=== PATIENT | female | born 1985 | race Caucasian/White ===

== ENCOUNTER → 2016-06-12 | Outpatient (CLI) | payer BC ==
[~2016-06-12] MED LIST: BIAXIN500 MG PO; CLARITIN10 MG PO; COLACE100 MG PO; FEOSOL,FER300 MG/5 M PO; MOTRIN800 MG PO; PERCOCET 325 MG1 TA2 PO; PRENATAL1 TA5 PO
== END | disposition home or self-care (01) ==
LOC: LAB 02:08
DX: O99.810 Abnormal glucose complicating pregnancy (principal); Z3A.00 Weeks of gestation of pregnancy not specified

== ENCOUNTER → 2016-08-20 | Outpatient (CLI) | payer BC | END | disposition home or self-care (01) | LOC: US 00:52 | DX: O26.893 Other specified pregnancy related conditions, third trimester (principal); Z3A.37 37 weeks gestation of pregnancy ==

== ENCOUNTER 2017-05-19 22:34 | Emergency (ER) | payer OTHER ==
[~2017-05-19] VITALS: Ht 170.1 cm; Wt 122.5 kg
--- NOTE | ~2017-05-19 | EKG ---
[place], [place] ELECTROCARDIOGRAM REPORT NAME: SLOAN MENDOZA UNIT #: [id number] ROOM: DOCTOR: GAYATRI ISAAC,MEDINA BIRTHDATE: [birth year] DOS: 05/19/2017 TIME: 2311 hours. IMPRESSION: 1. Sinus rhythm, sinus tachycardia. 2. Nonspecific ST-T changes. 3. Normal QT interval. MEDINA MENDIETA MD CM:EKGRPT:ELECTROCARDIOGRAM REPORT 1400 [id number] MEDINA MENDIETA MD
[2017-05-19 22:40] VITALS: BP 135/51
[2017-05-19 23:07] LABS: BILIRUBIN 1+ (NEGATIVE); BLOOD 2+ (NEGATIVE); CLARITY SL CLOUDY (CLEAR); COLOR YELLOW (YELLOW); GLUCOSE NEGATIVE (NEGATIVE); KETONE TRACE (NEGATIVE); LEUKO ESTERASE NEGATIVE (NEGATIVE); NITRITE NEGATIVE (NEGATIVE); PH 5.5 (5.0-9.0); SPECIFIC GRAVITY 1.025 (1.005-1.030)
[2017-05-19 23:12] LABS: BACTERIA 1+; EPITHELIAL CELLS 45-50
[2017-05-19 23:13] LABS: WBC 0-2 wbc/hpf (0-5)
[2017-05-19 23:22] LABS: BASO # 0.1 10*3/uL (0.0-0.1); BASO % 0.4 % (0.0-1.0); EOS # 0.2 10*3/uL (0.0-0.4); EOS % 1.7 % (1.0-4.0); HEMATOCRIT 39.9 % (37.0-47.0); HEMOGLOBIN 12.6 g/dl (12.0-16.0); LYMPH # 2.3 10*3/uL (1.3-4.4); LYMPH % 16.5 % (27.0-41.0); MEAN CELL VOLUME 82.3 fl (81.0-99.0); MEAN CORPUSCULAR HGB CONC 31.6 g/dl (33.0-37.0); MEAN PLATELET VOLUME 10.2 fl (9.6-12.3); MONO # 0.7 10*3/uL (0.1-1.0); NEUT # 10.3 10*3/uL (2.3-7.9); NEUT % 75.4 % (47.0-73.0); PLATELET COUNT AUTOMATED 281 10*3/uL (130-400); RED BLOOD COUNT 4.85 10*6/uL (4.10-5.10); RED CELL DISTRI WIDTH 15.5 % (0-14.5); WHITE BLOOD COUNT 13.7 10*3/uL (4.8-10.8)
[2017-05-19 23:23] LABS: ALBUMIN 3.8 gm/dl (3.1-4.5); ALKALINE PHOSPHATASE 84 U/L (45-117); BUN 15 mg/dl (7-24); CHLORIDE 105 mmol/L (98-107); CREATININE 0.91 mg/dL (0.55-1.02); LIPASE 118 U/L (73-393); POTASSIUM 3.8 mmol/L (3.5-5.1); SGOT/AST 118 IU/L (3-35); SGPT/ALT 84 U/L (12-78); SODIUM 142 mmol/L (136-145); TOTAL PROTEIN 7.7 gm/dL (6.4-8.2)
[2017-05-19 23:25] LABS: BETA-HCG, QUANT < 1.0 mIU/mL (1-3); TROPONIN I < 0.015 ng/ml (<0.045)
[2017-05-20] MEDS ORDERED: NAPROSYN500 MG PO (01:19)
== END 2017-05-20 01:13 | disposition home or self-care (01) ==
LOC: ED 22:34
PROVIDERS: Student in an Organized Health Care Education/Training Program
DX: K80.20 Calculus of gallbladder without cholecystitis without obstruction (principal); Z88.6 Allergy status to analgesic agent; Z90.49 Acquired absence of other specified parts of digestive tract

== ENCOUNTER 2017-06-16 13:48 | Inpatient (IN) | payer OTHER ==
[~2017-06-16] VITALS: Ht 165.1 cm; Wt 108.9 kg
--- NOTE | ~2017-06-16 | O ---
[place], [place] OPERATIVE NOTE NAME: SLOAN MENDOZA [facility] #: [id number] UNIT #: [id number] ROOM: 421 DOCTOR: JUANJO MILLER MD BIRTHDATE: [birth year] DOS: 06/17/2017 PREOPERATIVE DIAGNOSIS: Acute cholecystitis. POSTOPERATIVE DIAGNOSIS: Acute cholecystitis. PROCEDURE: Laparoscopic cholecystectomy. SURGEON: Juanjo Miller MD ELECTRONIC COURT RECORDER: HUNG. ANESTHESIA: General with endotracheal intubation. INDICATIONS: This is a 31-year-old lady admitted from the emergency room with epigastric pain and was found to have acute cholecystitis. She was taken to the operating room today for the above-mentioned procedure. The procedure and its complications were explained to the patient in detail preoperatively. Complications that were discussed included but were not limited to bleeding, infection, hematoma/seroma/abscess formation, prolonged postoperative pain, damage to underlying vital structures, inadvertent injury to the common bile duct, biloma formation and incisional hernia formation. She agreed to proceed. DESCRIPTION OF PROCEDURE: After identifying the patient, the patient was brought to the operating suite and laid in the supine position. After induction of general anesthesia, the parts were then painted and draped in the usual sterile fashion and a time-out procedure was called. An incision below the umbilicus was made. The skin and the subcutaneous tissue were incised in the line of the incision. The fascia was incised and 2 stay sutures with 0 Vicryl were taken on either side. The peritoneum was then opened and a 12 mm Landon port was introduced into the peritoneal cavity. A pneumoperitoneum was created. Under direct vision, an epigastric incision of 10 mm and two 5 mm incisions were made in the right upper quadrant and appropriate size ports were introduced. The gallbladder was found to have a lot of omental adhesions which were taken down with the help of blunt and sharp dissection. Thereafter, the gallbladder was retracted superiorly and laterally. The cystic duct and the cystic artery were carefully dissected until the critical view of safety was obtained and the triangle of Calot was clearly identified. Thereafter, each of these structures were clipped 3 times and cut between the first and the second clip. The gallbladder was then removed from the bed of the gallbladder with the help of electrocautery. It was placed in an EndoCatch bag and removed from the peritoneal cavity and sent for histopathological diagnosis. Hemostasis was achieved in the liver bed and after hemostasis was confirmed, the right upper quadrant ports were removed and then the umbilical port was also removed and there was no bleeding seen. The fascia and the umbilical incision was then approximated with the help of 0 Vicryl in a [id number] fashion and the 2 stay sutures were tied together as well. Thereafter, the skin edges were infiltrated with 1% plain lidocaine and then approximated with the help of 4-0 Vicryl in a subcuticular running fashion. Dressings were placed. The patient [place], [place] OPERATIVE NOTE NAME: SLOAN MENDOZA UNIT #: [id number] ROOM: 421 DOCTOR: JUANJO MILLER MD BIRTHDATE: [birth year] tolerated the procedure well and there were no complications. Dr. Juanjo Miller, the attending surgeon, was present throughout the operating case. Juanjo Miller MD CM:OPRECORD:OPERATIVE NOTE 0923 [id number] JUANJO MILLER MD 06/17/17 0945 interface
[~2017-06-16 13:48] MED LIST changes: +NAPROSYN500 MG PO
[2017-06-16 14:01] VITALS: BP 142/104
[2017-06-16 14:34] LABS: BASO # 0.1 10*3/uL (0.0-0.1); BASO % 0.7 % (0.0-1.0); EOS # 0.3 10*3/uL (0.0-0.4); EOS % 3.5 % (1.0-4.0); HEMOGLOBIN 11.9 g/dl (12.0-16.0); LYMPH # 2.6 10*3/uL (1.3-4.4); LYMPH % 30.2 % (27.0-41.0); MEAN CELL VOLUME 81.3 fl (81.0-99.0); MEAN CORPUSCULAR HGB 26.2 pg (27.0-31.0); MEAN CORPUSCULAR HGB CONC 32.2 g/dl (33.0-37.0); MEAN PLATELET VOLUME 10.1 fl (9.6-12.3); MONO # 0.4 10*3/uL (0.1-1.0); MONO % 4.9 % (3.0-9.0); NEUT # 5.2 10*3/uL (2.3-7.9); NEUT % 60.5 % (47.0-73.0); PLATELET COUNT AUTOMATED 240 10*3/uL (130-400); RED BLOOD COUNT 4.55 10*6/uL (4.10-5.10); RED CELL DISTRI WIDTH 14.6 % (0-14.5); WHITE BLOOD COUNT 8.6 10*3/uL (4.8-10.8)
[2017-06-16 14:58] LABS: ALBUMIN 3.7 gm/dl (3.1-4.5); ALKALINE PHOSPHATASE 91 U/L (45-117); BUN 15 mg/dl (7-24); CHLORIDE 107 mmol/L (98-107); LIPASE 113 U/L (73-393); POTASSIUM 3.2 mmol/L (3.5-5.1); SGOT/AST 75 IU/L (3-35); SGPT/ALT 68 U/L (12-78); SODIUM 142 mmol/L (136-145); TOTAL PROTEIN 7.3 gm/dL (6.4-8.2)
[2017-06-16 15:05] VITALS: BP 116/66
[2017-06-16 15:24] LABS: BILIRUBIN NEGATIVE (NEGATIVE); BLOOD 3+ (NEGATIVE); CLARITY SL CLOUDY (CLEAR); COLOR RED (YELLOW); GLUCOSE NEGATIVE (NEGATIVE); KETONE TRACE (NEGATIVE); NITRITE NEGATIVE (NEGATIVE); PH 5.5 (5.0-9.0); SPECIFIC GRAVITY >= 1.030 (1.005-1.030)
[2017-06-16 15:35] LABS: LEUKO ESTERASE NEGATIVE (NEGATIVE)
[2017-06-16 15:36] LABS: RBC TNTC rbc/hpf (0-2)
[2017-06-16 16:39] VITALS: BP 120/68
[2017-06-16 17:20] VITALS: BP 109/66
[2017-06-16 20:00] VITALS: BP 104/62
[2017-06-17] VITALS (12 sets, daily range): BP systolic 103–134; BP diastolic 42–66
[2017-06-17 07:51] LABS: BASO % 0.5 % (0.0-1.0); EOS # 0.2 10*3/uL (0.0-0.4); EOS % 3.6 % (1.0-4.0); HEMATOCRIT 35.3 % (37.0-47.0); HEMOGLOBIN 11.4 g/dl (12.0-16.0); LYMPH # 1.8 10*3/uL (1.3-4.4); LYMPH % 27.7 % (27.0-41.0); MEAN CELL VOLUME 82.1 fl (81.0-99.0); MEAN CORPUSCULAR HGB 26.5 pg (27.0-31.0); MEAN CORPUSCULAR HGB CONC 32.3 g/dl (33.0-37.0); MEAN PLATELET VOLUME 10.1 fl (9.6-12.3); MONO # 0.4 10*3/uL (0.1-1.0); MONO % 5.9 % (3.0-9.0); NEUT # 4.1 10*3/uL (2.3-7.9); PLATELET COUNT AUTOMATED 222 10*3/uL (130-400); RED CELL DISTRI WIDTH 14.6 % (0-14.5); WHITE BLOOD COUNT 6.6 10*3/uL (4.8-10.8)
[2017-06-17 08:10] LABS: ALBUMIN 3.4 gm/dl (3.1-4.5); ALKALINE PHOSPHATASE 108 U/L (45-117); BUN 13 mg/dl (7-24); CHLORIDE 110 mmol/L (98-107); CHOLESTEROL 135 mg/dL (<200); CREATININE 0.89 mg/dL (0.55-1.02); HDL CHOLESTEROL 42 mg/dl (40-60); LDL CHOLESTEROL 68 mg/dL (9-159); PHOSPHOROUS 2.9 mg/dL (2.5-4.9); POTASSIUM 4.1 mmol/L (3.5-5.1); SGOT/AST 327 IU/L (3-35); SGPT/ALT 371 U/L (12-78); SODIUM 142 mmol/L (136-145); TOTAL PROTEIN 6.7 gm/dL (6.4-8.2); TRIGLYCERIDES 123 mg/dl (<150); VLDL CHOLESTEROL 25 mg/dL (6-40)
[2017-06-17 08:58] LABS: VITAMIN D, 25-HYDROXY 11.3 ng/mL (30-100)
== END 2017-06-17 16:08 | disposition home or self-care (01) | DRG 854 ==
LOC: ED 13:48 → EDHOLD 16:13 → 4E 16:13
PROVIDERS: Internal Medicine; Physician Assistant
PROC: 0FT44ZZ Resection of Gallbladder, Percutaneous Endoscopic Approach (ICD-10-PCS; principal; 2017-06-17)
DX: A41.9 Sepsis, unspecified organism (principal); K80.42 Calculus of bile duct with acute cholecystitis without obstruction; D64.9 Anemia, unspecified; E87.6 Hypokalemia; R73.9 Hyperglycemia, unspecified; R74.0 Nonspecific elevation of levels of transaminase and lactic acid dehydrogenase [LDH]; R31.21 Asymptomatic microscopic hematuria; E66.9 Obesity, unspecified; Z88.6 Allergy status to analgesic agent; Z68.39 Body mass index [BMI] 39.0-39.9, adult

== ENCOUNTER → 2017-08-03 | Outpatient (CLI) | payer OTHER | END | disposition home or self-care (01) | LOC: RESCLI 03:28 | DX: R94.6 Abnormal results of thyroid function studies (principal); E66.01 Morbid (severe) obesity due to excess calories; Z90.49 Acquired absence of other specified parts of digestive tract; Z86.19 Personal history of other infectious and parasitic diseases ==

== ENCOUNTER → 2017-08-06 | Outpatient (CLI) | payer OTHER ==
[2017-08-06 07:19] LABS: BASO # 0.1 10*3/uL (0.0-0.1); BASO % 0.7 % (0.0-1.0); EOS # 0.3 10*3/uL (0.0-0.4); EOS % 3.8 % (1.0-4.0); HEMOGLOBIN 12.3 g/dl (12.0-16.0); LYMPH # 2.4 10*3/uL (1.3-4.4); LYMPH % 27.8 % (27.0-41.0); MEAN CELL VOLUME 83.2 fl (81.0-99.0); MEAN CORPUSCULAR HGB 26.2 pg (27.0-31.0); MEAN CORPUSCULAR HGB CONC 31.5 g/dl (33.0-37.0); MEAN PLATELET VOLUME 10.2 fl (9.6-12.3); MONO # 0.6 10*3/uL (0.1-1.0); MONO % 6.5 % (3.0-9.0); NEUT # 5.3 10*3/uL (2.3-7.9); PLATELET COUNT AUTOMATED 261 10*3/uL (130-400); RED BLOOD COUNT 4.69 10*6/uL (4.10-5.10); RED CELL DISTRI WIDTH 14.5 % (0-14.5); WHITE BLOOD COUNT 8.7 10*3/uL (4.8-10.8)
[2017-08-06 07:47] LABS: ALBUMIN 3.6 gm/dl (3.1-4.5); BUN 14 mg/dl (7-24); CHLORIDE 109 mmol/L (98-107); CHOLESTEROL 148 mg/dL (<200); CREATININE 0.79 mg/dL (0.55-1.02); SGOT/AST 17 IU/L (3-35); SGPT/ALT 37 U/L (12-78); SODIUM 142 mmol/L (136-145); TOTAL PROTEIN 7.2 gm/dL (6.4-8.2); TRIGLYCERIDES 255 mg/dl (<150); VLDL CHOLESTEROL 51 mg/dL (6-40)
[2017-08-06 07:56] LABS: ALKALINE PHOSPHATASE 74 U/L (45-117); HDL CHOLESTEROL 32 mg/dl (40-60); LDL CHOLESTEROL 65 mg/dL (9-159)
[2017-08-06 08:11] LABS: FREE T4 0.77 ng/dl (0.76-1.46)
== END | disposition home or self-care (01) ==
LOC: LAB 06:32
PROVIDERS: Internal Medicine
DX: E66.01 Morbid (severe) obesity due to excess calories (principal); R94.6 Abnormal results of thyroid function studies; E03.9 Hypothyroidism, unspecified; R73.9 Hyperglycemia, unspecified; Z86.19 Personal history of other infectious and parasitic diseases; Z90.49 Acquired absence of other specified parts of digestive tract

== ENCOUNTER → 2017-08-10 | Outpatient (CLI) | payer OTHER | END | disposition home or self-care (01) | LOC: RESCLI 03:48 → WOUNDCARE 11:51 → RESCLI 13:25 | DX: E03.9 Hypothyroidism, unspecified (principal); R94.6 Abnormal results of thyroid function studies; E66.01 Morbid (severe) obesity due to excess calories; Z86.19 Personal history of other infectious and parasitic diseases ==

== ENCOUNTER → 2017-08-27 | Outpatient (CLI) | payer OTHER ==
[2017-08-27 09:51] LABS: FREE T4 0.97 ng/dl (0.76-1.46)
[2017-08-27 09:56] LABS: THYROID STIM HORMONE (HS) 15.2 uIU/ml (0.358-4.75)
== END | disposition home or self-care (01) ==
LOC: LAB 06:34
PROVIDERS: Internal Medicine
DX: E03.9 Hypothyroidism, unspecified (principal)

== ENCOUNTER → 2017-09-15 | Outpatient (CLI) | payer OTHER ==
[2017-09-15 10:31] LABS: THYROXINE (T4) TOTAL 9.5 ug/dl (4.8-13.9)
[2017-09-15 10:38] LABS: THYROID STIM HORMONE (HS) 10.8 uIU/ml (0.358-4.75)
== END | disposition home or self-care (01) ==
LOC: LAB 09:18
PROVIDERS: Internal Medicine
DX: E03.9 Hypothyroidism, unspecified (principal)

== ENCOUNTER → 2017-09-22 | Outpatient (CLI) | payer OTHER | END | disposition home or self-care (01) | LOC: RESCLI 02:05 | DX: E03.9 Hypothyroidism, unspecified (principal); R94.6 Abnormal results of thyroid function studies; E66.01 Morbid (severe) obesity due to excess calories; Z90.49 Acquired absence of other specified parts of digestive tract; Z86.19 Personal history of other infectious and parasitic diseases; Z98.890 Other specified postprocedural states ==

== ENCOUNTER 2017-10-31 13:53 | Emergency (ER) | payer OTHER ==
[2017-10-31] MEDS ORDERED: SYNTHROID25 MCG PO (13:55)
[2017-10-31 13:57] VITALS: BP 128/81
[2017-10-31] MEDS ORDERED: PREDNISONE10 MG PO (14:13)
== END 2017-10-31 14:17 | disposition home or self-care (01) ==
LOC: ED 13:53
DX: L23.7 Allergic contact dermatitis due to plants, except food (principal); Z90.89 Acquired absence of other organs; Z98.890 Other specified postprocedural states; Z79.899 Other long term (current) drug therapy; Z88.5 Allergy status to narcotic agent

== ENCOUNTER → 2017-12-22 | Outpatient (CLI) | payer OTHER ==
[~2017-12-22] MED LIST changes: +PREDNISONE10 MG PO; +SYNTHROID25 MCG PO
== END | disposition home or self-care (01) ==
LOC: RESCLI 01:43
DX: E03.9 Hypothyroidism, unspecified (principal); E66.01 Morbid (severe) obesity due to excess calories; E55.9 Vitamin D deficiency, unspecified; E78.5 Hyperlipidemia, unspecified; R73.9 Hyperglycemia, unspecified; Z79.899 Other long term (current) drug therapy; Z90.49 Acquired absence of other specified parts of digestive tract

== ENCOUNTER → 2020-10-17 | Day surgery (SDC) | payer OTHER ==
[~2020-10-17] VITALS: Ht 170.1 cm; Wt 117.9 kg
[2020-10-17 07:15] VITALS: BP 141/75
[2020-10-17 08:00] VITALS: BP 127/76
[2020-10-17 08:05] VITALS: BP 126/75
[2020-10-17 08:09] VITALS: BP 127/76
[2020-10-17 08:10] VITALS: BP 127/81
[2020-10-17 08:15] VITALS: BP 119/73
== END | disposition home or self-care (01) ==
LOC: SDC 10-10 14:45
PROVIDERS: ATTEND Surgery
DX: D48.1 Neoplasm of uncertain behavior of connective and other soft tissue (principal); Z98.890 Other specified postprocedural states

== ENCOUNTER 2024-02-20 11:35 | Emergency (ER) | payer BC ==
[~2024-02-20] VITALS: Ht 167.6 cm; Wt 113.4 kg
[2024-02-20 11:47] VITALS: BP 147/77
[2024-02-20] MEDS ORDERED: SODIUM CHLORIDE 0.9% 1,000 ML IV ONE (11:55)
[2024-02-20] MEDS ORDERED: HYDROmorphONE Hydrochloride 0.5 MG/0.5 ML SYRINGE IV ONE (11:55)
[2024-02-20] MEDS ORDERED: Ketorolac Tromethamine 30 MG/ML VIAL IV ONE (11:55)
[2024-02-20 12:15] LABS: BASO # 0.1 10*3/uL (0.0-0.1); BASO % 0.5 % (0.0-1.0); EOS # 0.3 10*3/uL (0.0-0.4); EOS % 2.4 % (1.0-4.0); HEMATOCRIT 39.9 % (37.0-47.0); LYMPH # 2.2 10*3/uL (1.3-4.4); LYMPH % 16.1 % (27.0-41.0); MEAN CELL VOLUME 85.1 fl (81.0-99.0); MEAN CORPUSCULAR HGB 27.5 pg (27.0-31.0); MEAN CORPUSCULAR HGB CONC 32.3 g/dl (33.0-37.0); MEAN PLATELET VOLUME 9.6 fl (9.6-12.3); MONO # 0.9 10*3/uL (0.1-1.0); MONO % 6.5 % (3.0-9.0); NEUT # 9.9 10*3/uL (2.3-7.9); PLATELET COUNT AUTOMATED 265 10*3/uL (130-400); RED BLOOD COUNT 4.69 10*6/uL (4.10-5.10); RED CELL DISTRI WIDTH 14.2 % (0-14.5); WHITE BLOOD COUNT 13.4 10*3/uL (4.8-10.8)
[2024-02-20 12:30] LABS: BUN 13 mg/dl (9-23); CHLORIDE 104 mmol/L (98-107); LIPASE 28 U/L (12-53); POTASSIUM 3.7 mmol/L (3.4-5.1)
[2024-02-20 13:18] LABS: BILIRUBIN Negative (Negative); BLOOD 3+ (Negative); CLARITY Turbid (Clear); COLOR Dark Yellow (Yellow); GLUCOSE Negative (Negative); KETONE Trace (Negative); LEUKO ESTERASE Trace (Negative); NITRITE Negative (Negative); PH 5.5 (4.5-8.0); SPECIFIC GRAVITY >= 1.030 (1.001-1.030)
[2024-02-20 13:40] LABS: BACTERIA 4+; CALCIUM OXALATE CRYSTALS 3+; EPITHELIAL CELLS 16-20; RBC 41-50 rbc/hpf (0-2)
[2024-02-20] MEDS ORDERED: Ceftriaxone Sodium 1 GM/10 ML SYR IV ONE (14:15)
[2024-02-20] MEDS ORDERED: CIPRO500 MG PO (14:28)
== END 2024-02-20 15:42 | disposition home or self-care (01) ==
LOC: ED 11:35
PROVIDERS: Internal Medicine
DX: N39.0 Urinary tract infection, site not specified (principal); R11.2 Nausea with vomiting, unspecified; Z88.5 Allergy status to narcotic agent; Z90.49 Acquired absence of other specified parts of digestive tract; Z90.89 Acquired absence of other organs; Z98.890 Other specified postprocedural states